=== PATIENT | male | born 1955 | race Caucasian/White ===

== ENCOUNTER 2016-12-14 06:58 | Emergency (ER) | payer OTHER ==
[2016-12-14] MEDS ORDERED: HYDROmorphONE/DILAUDID 1 MG/ML SYR IVP ONE (07:20)
[2016-12-14] MEDS ORDERED: ONDANSETRON 4 MG/2 ML VIAL IVP ONE (07:20)
[2016-12-14] MEDS ORDERED: NS 1,000 ML IV ONE (07:20)
--- NOTE | 2016-12-14 07:21 | EDPHY ---
H & P Stated Complaint: R flank pain x2hrs Time Seen by Provider: 12/14/16 07:19 HPI/ROS: CHIEF COMPLAINT: Right flank pain HISTORY OF PRESENT ILLNESS: The patient presents to the ED with a 2 hour history of severe right flank pain. The patient reports nausea but no vomiting. The patient denies any antecedent hematuria or dysuria. The patient does have a history of ureterolithiasis requiring treatment with lithotripsy approximately 20 years ago. He has not had recurrent issues of renal colic since that time. The patient does have a history of hypertension and hyperlipidemia. The patient denies any history of recent fall or trauma. The patient rates his pain as a 8/10. REVIEW OF SYSTEMS: A comprehensive 10 point review of systems is otherwise negative aside from elements mentioned in the history of present illness. Source: Patient Exam Limitations: No limitations - Personal History Current Tetanus/Diphtheria Vaccine: No Current Tetanus Diphtheria and Acellular Pertussis (TDAP): No - Medical/Surgical History Hx Asthma: No Hx Chronic Respiratory Disease: No Hx Diabetes: No Hx Cardiac Disease: No Hx Renal Disease: No Hx Cirrhosis: No Hx Alcoholism: No Hx HIV/AIDS: No Hx Splenectomy or Spleen Trauma: No Other PMH: pmh- kidney stones, htn, hld - Social History Smoking Status: Never smoked - Physical Exam Exam: General Appearance: Alert, moderate discomfort from pain Eyes: Pupils equal and round no pallor or injection ENT, Mouth: Mucous membranes moist Respiratory: There are no retractions, lungs are clear to auscultation Cardiovascular: Regular rate and rhythm Gastrointestinal: Abdomen is soft and nontender, minimal tenderness to deep palpation in the right lower quadrant Neurological: A&O, normal motor function, normal sensory exam, normal cranial nerves Skin: Warm and dry, no rashes Back: Right CVA tenderness Extremities: symmetrical, full range of motion Constitutional: Initial Vital Signs Temperature (C) 36.4 C 12/14/16 07:00 Heart Rate 71 12/14/16 07:00 Respiratory Rate 18 12/14/16 07:00 Blood Pressure 143/103 H 12/14/16 07:00 O2 Sat (%) 98 12/14/16 07:00 O2 Delivery Mode Room Air Allergies/Adverse Reactions: No Known Allergies Allergy (Unverified 12/14/16 07:05) Home Medications: Medication Instructions Recorded Atenolol 12/14/16 Elavil 12/14/16 Lipitor 12/14/16 Nexium 12/14/16 Ondansetron Odt [Zofran Odt] 4 mg PO Q4PRN PRN #20 tab 12/14/16 Tamsulosin HCl [Flomax] 0.4 mg PO DAILY PRN #5 cap 12/14/16 oxyCODONE/APAP 5/325 [Percocet 1 - 2 tab PO Q6-8PRN PRN #20 tab 12/14/16 5/325 (RX)] Medical Decision Making - Diagnostics Imaging: CT abdomen pelvis without IV contrast: Images reviewed by myself. Discussed with radiologist Dr. Dg Ragland. Study demonstrates a 6 mm proximal right ureteral stone without significant hydronephrosis, bilateral punctate nephrolithiasis noted. Diverticulosis without diverticulitis. ED Course/Re-evaluation: The patient presents to the ED with moderate to severe acute right flank pain. Patient had an IV established and received half a mg of Dilaudid. Patient's renal function was noted to be within normal limits. The patient received 30 mg of IV Toradol. CT scan of the abdomen pelvis does demonstrate a proximal ureteral stone 6 mm in size without significant hydronephrosis. Patient was re-evaluated at 8:50 a.m.. He reports 0/10 pain currently. The patient has been informed that this stone is at a lower probability of passing given its size however the patient will opt for conservative management at this point time. The patient will be discharged home with a prescription for Flomax , Percocet and Zofran. He is referred to our on-call urologist. The patient is also given a urinary strainer. The patient is instructed to return to the ED for intractable pain, vomiting or other concerns. Differential Diagnosis: Differential diagnosis considered includes ureterolithiasis, pyelonephritis, abdominal aortic aneurysm, myofascial strain - Data Points Laboratory Results: Laboratory Results 12/14/16 07:16 12/14/16 07:16 12/14/16 12/14/16 12/14/16 08:09 07:16 07:16 WBC 7.12 10^3/uL 10^3/uL (3.80-9.50) RBC 5.33 10^6/uL 10^6/uL (4.40-6.38) Hgb 17.3 g/dL g/dL (13.7-17.5) Hct 47.9 % % (40.0-51.0) MCV 89.9 fL fL (81.5-99.8) MCH 32.5 pg pg (27.9-34.1) MCHC 36.1 g/dL g/dL (32.4-36.7) RDW 12.9 % % (11.5-15.2) Plt Count 219 10^3/uL 10^3/uL (150-400) MPV 9.9 fL fL (8.7-11.7) Neut % (Auto) 60.2 % % (39.3-74.2) Lymph % (Auto) 27.1 % % (15.0-45.0) Page % (Auto) 8.4 % % (4.5-13.0) Eos % (Auto) 3.4 % % (0.6-7.6) Baso % (Auto) 0.6 % % (0.3-1.7) Nucleat RBC Rel Count 0.0 % % (0.0-0.2) Absolute Neuts (auto) 4.29 10^3/uL 10^3/uL (1.70-6.50) Absolute Lymphs (auto) 1.93 10^3/uL 10^3/uL (1.00-3.00) Absolute Monos (auto) 0.60 10^3/uL 10^3/uL (0.30-0.80) Absolute Eos (auto) 0.24 10^3/uL 10^3/uL (0.03-0.40) Absolute Basos (auto) 0.04 10^3/uL 10^3/uL (0.02-0.10) Absolute Nucleated RBC 0.00 10^3/uL 10^3/uL (0-0.01) Immature Gran % 0.3 % % (0.0-1.1) Immature Gran # 0.02 10^3/uL 10^3/uL (0.00-0.10) Sodium 143 mEq/L mEq/L (134-144) Potassium 4.0 mEq/L mEq/L (3.5-5.2) Chloride 105 mEq/L mEq/L (97-110) Carbon Dioxide 25 mEq/l mEq/l (22-31) Anion Gap 13 mEq/L mEq/L (8-16) BUN 23 mg/dL mg/dL (7-23) Creatinine 1.1 mg/dL mg/dL (0.7-1.3) Estimated GFR > 60 Glucose 114 mg/dL H mg/dL (70-100) Calcium 9.9 mg/dL mg/dL (8.5-10.4) Urine Color YELLOW Urine Appearance CLEAR Urine pH 6.0 (5.0-7.5) Ur Specific [place] 1.008 (1.002-1.030) Urine Protein NEGATIVE (NEGATIVE) Urine Ketones NEGATIVE (NEGATIVE) Urine Blood 3+ H (NEGATIVE) Urine Nitrate NEGATIVE (NEGATIVE) Urine Bilirubin NEGATIVE (NEGATIVE) Urine Urobilinogen NEGATIVE EU EU (0.2-1.0) Ur Leukocyte Esterase NEGATIVE (NEGATIVE) Urine RBC 50-182 /hpf H /hpf (0-3) Urine WBC 1-3 /hpf /hpf (0-3) Ur Epithelial Cells TRACE /lpf /lpf (NONE-1+) Urine Bacteria TRACE /hpf H /hpf (NONE SEEN) Urine Mucus 1+ /lpf /lpf (NONE-1+) Ur Culture Indicated? NOT INDICATED (NI) Urine Glucose NEGATIVE (NEGATIVE) Medications Given: Discontinued Medications Hydromorphone HCl (Dilaudid) 0.5 mg IVP EDNOW ONE Stop: 12/14/16 07:21 Last Admin: 12/14/16 07:31 Dose: 0.5 mg Sodium Chloride (Ns) 1,000 mls @ 0 mls/hr IV ONCE ONE PRN Reason: Wide Open Stop: 12/14/16 07:21 Last Admin: 12/14/16 07:31 Dose: 1,000 mls Ketorolac Tromethamine (Toradol) 30 mg IVP EDNOW ONE Stop: 12/14/16 07:46 Last Admin: 12/14/16 08:16 Dose: 30 mg Ondansetron HCl (Zofran) 4 mg IVP EDNOW ONE Stop: 12/14/16 07:21 Last Admin: 12/14/16 07:31 Dose: 4 mg Departure - Departure Disposition: Home, Routine, Self-Care Clinical Impression: Renal colic on right side Condition: Good Instructions: Renal Colic (ED) Additional Instructions: 1. Take Ibuprofen or Motrin 600 mg by mouth three times a day. 2. Percocet as needed for severe pain 3. Flomax as directed 4. Zofran as needed for nausea 5. Strain urine as directed 6. Return to the Emergency Department for intractable pain, fever or vomiting. 7. Followup with the urologist you have been referred to for unimproved symptoms. Referrals: Yolanda Irvin MD [Medical Doctor] - As per Instructions Prescriptions: Ondansetron Odt [Zofran Odt] 4 mg PO Q4PRN PRN #20 tab PRN Reason: For Nausea oxyCODONE/APAP 5/325 [Percocet 5/325 (RX)] 1 - 2 tab PO Q6-8PRN PRN #20 tab PRN Reason: for pain Tamsulosin HCl [Flomax] 0.4 mg PO DAILY PRN #5 cap PRN Reason: for pain
[2016-12-14 07:27] LABS: % IMMATURE GRANULYOCYTES 0.3 % (0.0-1.1); ABSOLUTE IMMATURE GRANULOCYTES 0.02 10^3/uL (0.00-0.10); ADD DIFF? NO; ADD MORPH? NO; ADD SCAN? NO; ATYPICAL LYMPHOCYTE FLAG 0 (0-99); FRAGMENT RBC FLAG 0 (0-99); HEMATOCRIT 47.9 % (40.0-51.0); HEMOGLOBIN 17.3 g/dL (13.7-17.5); LEFT SHIFT FLG 0 (0-99); LIPEMIA HEMOLYSIS FLAG 90 (0-99); MEAN CELL HEMOGLOBIN 32.5 pg (27.9-34.1); MEAN CELL HEMOGLOBIN CONCENTR. 36.1 g/dL (32.4-36.7); MEAN CELL VOLUME 89.9 fL (81.5-99.8); MEAN PLATELET VOLUME 9.9 fL (8.7-11.7); PLATELET CLUMPS FLAG 0 (0-99); PLATELET COUNT 219 10^3/uL (150-400); RED BLOOD CELL COUNT 5.33 10^6/uL (4.40-6.38); RED CELL DISTRIBUTION WIDTH 12.9 % (11.5-15.2)
[2016-12-14 07:41] LABS: ANION GAP 13 mEq/L (8-16); CALCIUM 9.9 mg/dL (8.5-10.4); CARBON DIOXIDE 25 mEq/l (22-31); CHLORIDE 105 mEq/L (97-110); CREATININE 1.1 mg/dL (0.7-1.3); GLOMERULAR FILTRATION RATE > 60; GLUCOSE 114 mg/dL (70-100); SODIUM 143 mEq/L (134-144)
[2016-12-14] MEDS ORDERED: KETOROLAC 30 MG/1 ML SDV IVP ONE (07:45)
[2016-12-14 08:21] LABS: COLOR YELLOW; LEUKOCYTE ESTERASE,URINE NEGATIVE (NEGATIVE); NITRITE,URINE NEGATIVE (NEGATIVE)
[2016-12-14 08:25] LABS: BACTERIA TRACE /hpf (NONE SEEN); MUCUS 1+ /lpf (NONE-1+); RBC,URINE 50-182 /hpf (0-3)
[2016-12-14 09:02] VITALS: BP 130/80; PULSE 70; RESP 14; TEMP 98.4; O2SAT 94
== END 2016-12-14 08:59 | disposition home or self-care (01) ==
DX: N23 Unspecified renal colic (principal); I10 Essential (primary) hypertension
CPT/HCPCS: 96374; J1170; J1885; J2405

== ENCOUNTER 2016-12-17 03:50 | Emergency (ER) | payer OTHER ==
--- NOTE | 2016-12-17 04:01 | EDPHY ---
H & P Stated Complaint: seen for kidney stone tuesday, unable to have bm since HPI/ROS: HPI CHIEF COMPLAINT: Constipation, abdominal cramping, recently diagnosed kidney stone, taking Percocet HISTORY OF PRESENT ILLNESS: This patient very pleasant 61-year-old male, denies significant medical history except for hypertension, presents to the emergency room for o'clock in the morning with diffuse abdominal cramping and more tenderness on the left lower quadrant. He states that he was recently diagnosed here in the emergency room with a kidney stone right-sided 6 mm and referred to Urology he has an appointment today at 3:00 p.m.. Patient tells me that he has been taking Percocet has not been drinking a lot of water and has really not been taking any stool softeners although he was told to take stool softeners. States that since Tuesday he has not had a bowel movement every trauma times to go have a bowel movement he gets severe sharp stabbing pains in his lower abdomen. And cramps. Denies fever, nausea vomiting. He tells me that the right-sided kidney stone pain has not bothered him but his abdominal cramping and urge to have a bowel movement is hurting him. Past Medical History: Hypertension Past Surgical History: Hernia repair Social History: Denies daily use of drugs alcohol tobacco products Family History: Noncontributory ROS REVIEW OF SYSTEMS: A comprehensive 10 point review of systems is otherwise negative aside from elements mentioned in the history of present illness. Exam Constitutional triage nursing summary reviewed, vital signs reviewed, awake/ alert. Eyes normal conjunctivae and sclera, EOMI, PERRLA. HENT normal inspection, atraumatic, moist mucus membranes, no epistaxis, neck supple/ no meningismus, no raccoon eyes. Respiratory clear to auscultation bilaterally, normal breath sounds, no respiratory distress, no wheezing. Cardiovascular rate normal, regular rhythm, no murmur, no edema, distal pulses normal. Gastrointestinal soft, mild tenderness palpation left lower quadrant, hypoactive bowel sounds, no rebound, no guarding, no distension, no pulsatile mass. Genitourinary no CVA tenderness. Musculoskeletal no midline vertebral tenderness, full range of motion, no calf swelling, no tenderness of extremities, no meningismus, good pulses, neurovascularly intact. Skin pink, warm, & dry, no rash, skin atraumatic. Neurologic awake, alert and oriented x 3, AAOx3, moves all 4 extremities equally, motor intact, sensory intact, CN II-XII intact, normal cerebellar, normal vision, normal speech. Psychiatric normal mood/affect. Heme/Lymph/Immune no lymphadenopathy. Differential Diagnosis: Includes but is not limited to in a particular order, opioid induced ileus, opioid induced constipation, fecal impaction, bowel obstruction, dehydration, electrolyte abnormality Medical Decision Making: This patient had an IV established receive IV fluids nausea medicine patient is specifically requesting pain medicine for abdominal cramping. I have ordered him IV Dilaudid 1 mg. He understands this may make his constipation worse. He will be hydrated. Check blood work. And he will have a KUB to make sure he does not have bowel gas pattern that shows concerning for obstruction or ileus. Re-evaluation: ED x-ray KUB upright: His x-ray is concerning for small bowel obstruction. There is multiple air-fluid levels. CT scan of the abdomen pelvis with IV contrast The results of the study are negative for bowel obstruction or significant ileus, large amount of stool in fluid in the descending colon. No dilated small bowel. The study was read by Dr. Gamble I viewed the images myself on the PACS system. 0600: patient is resting comfortably here in the emergency room in no acute distress. Abdomen remained soft. He is not vomiting. He feels better after IV fentanyl and IV fluids. He did have 2 bowel movements here. He feels much better. I will prescribe him Zofran for nausea and MiraLax. He understands drink lots of water and follow up with his previously scheduled urology appointment at 3:00 p.m. about his right-sided UPJ kidney stone. Source: Patient - Medical/Surgical History Hx Asthma: No Hx Chronic Respiratory Disease: No Hx Diabetes: No Hx Cardiac Disease: No Hx Renal Disease: No Hx Cirrhosis: No Hx Alcoholism: No Hx HIV/AIDS: No Hx Splenectomy or Spleen Trauma: No Other PMH: pmh- kidney stones, htn, hyperlipidemia, gerd, apnea - Social History Smoking Status: Never smoked Constitutional: Initial Vital Signs Temperature (C) 36.6 C 12/17/16 03:54 Heart Rate 64 12/17/16 03:54 Respiratory Rate 16 12/17/16 03:54 Blood Pressure 161/95 H 12/17/16 03:54 O2 Sat (%) 96 02/24/17 03:54 O2 Delivery Mode Room Air Allergies/Adverse Reactions: No Known Allergies Allergy (Verified 12/17/16 03:57) Home Medications: Medication Instructions Recorded Atenolol 12/14/16 Elavil 12/14/16 Lipitor 12/14/16 Nexium 12/14/16 Ondansetron Odt [Zofran Odt] 4 mg PO Q4PRN PRN #20 tab 12/14/16 Tamsulosin HCl [Flomax] 0.4 mg PO DAILY PRN #5 cap 12/14/16 oxyCODONE/APAP 5/325 [Percocet 1 - 2 tab PO Q6-8PRN PRN #20 tab 12/14/16 5/325 (RX)] Ondansetron HCl [Zofran] 4 mg PO Q4-6PRN PRN #10 tablet 12/17/16 Polyethylene Glycol 3350 [Miralax 17 gm PO DAILY #4 pkt 12/17/16 17 gm (*)] Medical Decision Making - Data Points Laboratory Results: Laboratory Results 12/17/16 04:20 12/17/16 04:20 12/17/16 12/17/16 12/17/16 05:35 04:20 04:20 WBC 8.72 10^3/uL 10^3/uL (3.80-9.50) RBC 5.14 10^6/uL 10^6/uL (4.40-6.38) Hgb 16.6 g/dL g/dL (13.7-17.5) Hct 46.2 % % (40.0-51.0) MCV 89.9 fL fL (81.5-99.8) MCH 32.3 pg pg (27.9-34.1) MCHC 35.9 g/dL g/dL (32.4-36.7) RDW 12.6 % % (11.5-15.2) Plt Count 206 10^3/uL 10^3/uL (150-400) MPV 9.7 fL fL (8.7-11.7) Neut % (Auto) 72.3 % % (39.3-74.2) Lymph % (Auto) 17.4 % % (15.0-45.0) [place] % (Auto) 7.8 % % (4.5-13.0) Eos % (Auto) 1.9 % % (0.6-7.6) Baso % (Auto) 0.3 % % (0.3-1.7) Nucleat RBC Rel Count 0.0 % % (0.0-0.2) Absolute Neuts (auto) 6.29 10^3/uL 10^3/uL (1.70-6.50) Absolute Lymphs (auto) 1.52 10^3/uL 10^3/uL (1.00-3.00) Absolute Monos (auto) 0.68 10^3/uL 10^3/uL (0.30-0.80) Absolute Eos (auto) 0.17 10^3/uL 10^3/uL (0.03-0.40) Absolute Basos (auto) 0.03 10^3/uL 10^3/uL (0.02-0.10) Absolute Nucleated RBC 0.00 10^3/uL 10^3/uL (0-0.01) Immature Gran % 0.3 % % (0.0-1.1) Immature Gran # 0.03 10^3/uL 10^3/uL (0.00-0.10) Sodium 142 mEq/L mEq/L (134-144) Potassium 4.2 mEq/L mEq/L (3.5-5.2) Chloride 102 mEq/L mEq/L (97-110) Carbon Dioxide 27 mEq/l mEq/l (22-31) Anion Gap 13 mEq/L mEq/L (8-16) BUN 21 mg/dL mg/dL (7-23) Creatinine 0.9 mg/dL mg/dL (0.7-1.3) Estimated GFR > 60 Glucose 112 mg/dL H mg/dL (70-100) Calcium 9.5 mg/dL mg/dL (8.5-10.4) Total Bilirubin 1.4 mg/dL mg/dL (0.1-1.4) Conjugated Bilirubin 0.4 mg/dL mg/dL (0.0-0.5) Unconjugated Bilirubin 1.0 mg/dL mg/dL (0.0-1.1) AST 23 IU/L IU/L (17-59) ALT 45 IU/L IU/L (21-72) Alkaline Phosphatase 62 IU/L IU/L (38-126) Total Protein 8.0 g/dL g/dL (6.3-8.2) Albumin 4.6 g/dL g/dL (3.5-5.0) Lipase 61.0 IU/L IU/L (23-300) Urine Color Pending Urine Appearance Pending Urine pH Pending Ur Specific [place] Pending Urine Protein Pending Urine Ketones Pending Urine Blood Pending Urine Nitrate Pending Urine Bilirubin Pending Urine Urobilinogen Pending Ur Leukocyte Esterase Pending Ur Culture Indicated? Pending Urine Glucose Pending Medications Given: Discontinued Medications Hydromorphone HCl (Dilaudid) 1 mg IVP EDNOW ONE Stop: 12/17/16 04:12 Last Admin: 12/17/16 04:37 Dose: 1 mg Sodium Chloride (Ns) 1,000 mls @ 0 mls/hr IV ONCE ONE PRN Reason: Wide Open Stop: 12/17/16 04:12 Last Admin: 12/17/16 04:36 Dose: 1,000 mls Ondansetron HCl (Zofran) 4 mg IVP EDNOW ONE Stop: 12/17/16 04:12 Last Admin: 12/17/16 04:36 Dose: 4 mg Departure - Departure Disposition: Home, Routine, Self-Care Clinical Impression: Abdominal pain Qualifiers: Abdominal location: generalized Qualified Code(s): R10.84 - Generalized abdominal pain Constipation Qualifiers: Constipation type: slow transit constipation Qualified Code(s): K59.01 - Slow transit constipation Condition: Good Instructions: Acute Abdominal Pain (ED), Constipation (ED) Additional Instructions: 1. Drink lots of fluids stay well-hydrated 2. take MiraLax as prescribed 3. Return to the emergency room if develops worsening abdominal pain, fever, vomiting Referrals: Patient,NotPresent [Unknown] - As per Instructions Prescriptions: Ondansetron HCl [Zofran] 4 mg PO Q4-6PRN PRN #10 tablet PRN Reason: Nausea/Vomiting, Use 1st Polyethylene Glycol 3350 [Miralax 17 gm (*)] 17 gm PO DAILY #4 pkt
[2016-12-17] MEDS ORDERED: NS 1,000 ML IV ONE (04:11)
[2016-12-17] MEDS ORDERED: HYDROmorphONE/DILAUDID 1 MG/ML SYR IVP ONE (04:11)
[2016-12-17] MEDS ORDERED: ONDANSETRON 4 MG/2 ML VIAL IVP ONE (04:11)
[2016-12-17 04:26] LABS: % IMMATURE GRANULYOCYTES 0.3 % (0.0-1.1); ABSOLUTE IMMATURE GRANULOCYTES 0.03 10^3/uL (0.00-0.10); ADD DIFF? NO; ADD MORPH? NO; ADD SCAN? NO; ATYPICAL LYMPHOCYTE FLAG 0 (0-99); FRAGMENT RBC FLAG 0 (0-99); HEMATOCRIT 46.2 % (40.0-51.0); HEMOGLOBIN 16.6 g/dL (13.7-17.5); LEFT SHIFT FLG 0 (0-99); LIPEMIA HEMOLYSIS FLAG 90 (0-99); MEAN CELL HEMOGLOBIN 32.3 pg (27.9-34.1); MEAN CELL HEMOGLOBIN CONCENTR. 35.9 g/dL (32.4-36.7); MEAN CELL VOLUME 89.9 fL (81.5-99.8); MEAN PLATELET VOLUME 9.7 fL (8.7-11.7); PLATELET CLUMPS FLAG 0 (0-99); PLATELET COUNT 206 10^3/uL (150-400); RED BLOOD CELL COUNT 5.14 10^6/uL (4.40-6.38); RED CELL DISTRIBUTION WIDTH 12.6 % (11.5-15.2)
[2016-12-17 04:43] LABS: ALANINE AMINOTRANSFERASE 45 IU/L (21-72); ALBUMIN 4.6 g/dL (3.5-5.0); ALKALINE PHOSPHATASE 62 IU/L (38-126); ANION GAP 13 mEq/L (8-16); ASPARTATE AMINOTRANSFERASE 23 IU/L (17-59); BILIRUBIN,TOTAL 1.4 mg/dL (0.1-1.4); BILIRUBIN-CONJUGATED 0.4 mg/dL (0.0-0.5); CALCIUM 9.5 mg/dL (8.5-10.4); CARBON DIOXIDE 27 mEq/l (22-31); CHLORIDE 102 mEq/L (97-110); CREATININE 0.9 mg/dL (0.7-1.3); GLOMERULAR FILTRATION RATE > 60; GLUCOSE 112 mg/dL (70-100); POTASSIUM 4.2 mEq/L (3.5-5.2); SODIUM 142 mEq/L (134-144)
[2016-12-17] MEDS ORDERED: IOPAMIDOL (ISOVUE-300) 100 ML BTL IV ONE (05:21)
[2016-12-17 05:47] LABS: COLOR YELLOW; LEUKOCYTE ESTERASE,URINE NEGATIVE (NEGATIVE); NITRITE,URINE NEGATIVE (NEGATIVE)
[2016-12-17 06:07] VITALS: BP 135/81; PULSE 67; RESP 18; TEMP 98.1; O2SAT 93
[2016-12-17 06:07] LABS: MUCUS 1+ /lpf (NONE-1+); RBC,URINE 15-25 /hpf (0-3)
== END 2016-12-17 06:07 | disposition home or self-care (01) ==
DX: K59.01 Slow transit constipation (principal); I10 Essential (primary) hypertension
CPT/HCPCS: 96374; J1170; J2405; Q9967

== ENCOUNTER → 2019-03-15 | Outpatient (CLI) | payer OTHER | LOC: BHLMT 16:00 | PROVIDERS: ATTEND Internal Medicine Cardiovascular Disease | DX: R00.1 Bradycardia, unspecified (principal) | CPT/HCPCS: 93225-PO; 93226-PO ==

== ENCOUNTER → 2019-04-18 | Outpatient (CLI) | payer OTHER | LOC: FIMAGING 07:36 ==